=== PATIENT | female | born 2000 | race Two or more races ===

== ENCOUNTER 2021-02-03 11:45 | Emergency (ER) | payer OTHER ==
[~2021-02-03] VITALS: Ht 165.1 cm; Wt 72.6 kg
[2021-02-03 13:26] VITALS: BP 123/79
[2021-02-03] MEDS ORDERED: IBUP600T27 PO (14:08)
== END 2021-02-03 14:10 | disposition home or self-care (01) ==
LOC: ER 11:45
DX: S16.1XXA Strain of muscle, fascia and tendon at neck level, initial encounter (principal); V49.9XXA Car occupant (driver) (passenger) injured in unspecified traffic accident, initial encounter; Y93.89 Activity, other specified; Y92.410 Unspecified street and highway as the place of occurrence of the external cause; Y99.8 Other external cause status
CPT/HCPCS: 72040